=== PATIENT | female | born 1995 | race Caucasian/White ===

== ENCOUNTER → 2021-11-14 14:47 | Outpatient (BNVA) | payer OTHER, SELFPAY | PROVIDERS: Visit Provider Nurse Practitioner Family | DX: Z20.822 Contact with and (suspected) exposure to COVID-19 (principal) | CPT/HCPCS: 87635 ==

== ENCOUNTER → 2023-01-22 09:44 | Outpatient (BNVA) | payer OTHER, SELFPAY | PROVIDERS: Visit Provider Nurse Practitioner Women's Health | DX: N92.6 Irregular menstruation, unspecified (principal) | CPT/HCPCS: 85025 ==

== ENCOUNTER → 2023-01-24 10:00 | Outpatient (BNVA) | payer OTHER, SELFPAY | PROVIDERS: Visit Provider Nurse Practitioner Women's Health | DX: E61.1 Iron deficiency (principal) | CPT/HCPCS: 82728; 83550 ==

== ENCOUNTER → 2023-01-30 13:24 | Outpatient (BNVA) | payer OTHER, SELFPAY | PROVIDERS: Visit Provider Nurse Practitioner Women's Health | DX: N92.6 Irregular menstruation, unspecified (principal) | CPT/HCPCS: 76830 ==

== ENCOUNTER 2023-02-04 13:03 | Emergency (ER) | payer OTHER, SELFPAY ==
[2023-02-04 13:05] VITALS: BP 122/81; PULSE 99; RESP 16; TEMP 36.7; O2SAT 100; BMI 23.0
--- NOTE | 2023-02-04 13:05 | XRR_ITS ---
PROCEDURE INFORMATION: Exam: XR Chest Exam date and time: 02/04/2023 1:32 PM Age: 27 years old Clinical indication: Shortness of breath; Additional info: SOB TECHNIQUE: Imaging protocol: Radiologic exam of the chest. Views: 1 view. COMPARISON: No relevant prior studies available. FINDINGS: Lungs: Unremarkable. No consolidation. Pleural spaces: Unremarkable. No pleural effusion. No pneumothorax. Heart/Mediastinum: Unremarkable. No cardiomegaly. Bones/joints: No acute findings. XR/XR chest 1V portable [id number] IMPRESSION: No acute cardiopulmonary abnormality.
--- NOTE | 2023-02-04 13:05 | ECG_ITS ---
[facility] Test Date: 2023-02-04 Pat Name: Latha Mccoy Department: Room: Gender: Female Packer Insulation: : 1995 Requested By: Vineet Whitehead Order Number: [id number] Hayden MD: Hitesh Frank Measurements Intervals [place] Rate: 88 P: 65 VT: 155 QRS: 59 QRSD: 90 T: 48 QT: 362 QTc: 439 Interpretive Statements SINUS RHYTHM LOW QRS VOLTAGE IN PRECORDIAL LEADS [QRS DEFLECTION < 1.0 mV IN CHEST LEADS] No previous ECG available for comparison Electronically Signed On 02-04-2023 18:57:46 CDT by Hitesh Frank [email or web address] [id number] f
--- NOTE | 2023-02-04 13:17 | W.ED.CHESTPA ---
HPI - Chest Pain General: Chief Complaint: Chest Pain Stated Complaint: sob/arms tingling/heart racing Time Seen by Provider: 02/04/23 13:16 History of Present Illness: Ms. Mccoy is a 27-year-old lady with recent diagnosis of iron deficiency anemia presented to the emergency department for palpitations and shortness of breath. She reports onset of symptoms few hours prior to arrival without known specific provoking event. She notes tingling in all extremities and intermittent changes in vision. Denies associated headaches. Intensity symptoms is moderate. Course has persisted. No other specific changes in health, exacerbating, or alleviating factors identified. Onset (ago): hour(s) Timing of current episode: constant Onset: during rest Quality: other Relieving factors: nothing Exacerbating factors: nothing Associated symptoms: Reports dyspnea, palpitations and other Review of Systems General: Reports: 10 or more systems reviewed and unremarkable except in HPI and below Card: Reports: palpitations Resp: Reports: dyspnea PFSH ED PFSH: Medical History Abnormal uterine bleeding Iron deficiency anemia Surgical History H/O gastric bypass Family History Family/Other Diabetes Paternal Aunt Family/Other Diabetes Paternal uncle Cervical cancer Aunt/ Paternal Sister Uterine cancer Family/Other Uterine cancer Paternal aunt Breast cancer Aunt/ Maternal Grandmother Breast cancer Paternal Ovarian cancer paternal Stroke paternal Denies family history of Colon cancer Hypertension Social History Smoking and tobacco status: never smoked Physical Exam Const: COMMON NORMALS: alert GENERAL APPEARANCE: cooperative and well developed HENMT: COMMON NORMALS: normocephalic and atraumatic HEAD & SCALP: normocephalic and atraumatic Eye: COMMON NORMALS: conjunctivae normal CONJUNCTIVA: Yes conjunctivae normal SCLERA: sclerae normal Neck/C-Spine: COMMON NORMALS: supple GENERAL: Yes trachea midline Resp: COMMON NORMALS: clear to auscultation bilaterally EFFORT & INSPECTION: Yes able to speak in complete sentences AUSCULTATION: clear to auscultation bilaterally Cardio: COMMON NORMALS: regular rate and regular rhythm RATE: regular rate RHYTHM: regular rhythm GI: COMMON NORMALS: Soft to palpation PALPATION: Yes Soft to palpation and No Tenderness to palpation present (GI) Extremity: GENERAL: Yes normal exam except as noted and No edema Neuro: COMMON NORMALS: moves all extremities SENSORIUM/ORIENTATION: Yes alert and No Orientation impaired Psych: COMMON NORMALS: mental status grossly normal and Normal thought process present THOUGHT PROCESS: Normal thought process present Course Vital Signs: Vital signs: Vital Signs Temperature 98.0 F 02/04/23 13:05 Pulse Rate 84 02/04/23 15:44 Respiratory Rate 14 02/04/23 14:17 Blood Pressure 113/75 02/04/23 15:44 Pulse Oximetry 100 02/04/23 14:17 Oxygen Delivery Me thod Room Air 02/04/23 14:17 MDM - Chest Pain Medical Decision Making 27-year-old female presenting with shortness of breath, tingling, palpitations. Exam as above. There are no focal neurologic deficits and patient is nontoxic in appearance. EKG demonstrates sinus rhythm with normal axis and intervals, no STEMI. Laboratory studies with no leukocytosis, microcytic anemia present, normal platelet count. Metabolic panel with no significant derangement. D-dimer is negative. hCG is negative and COVID is negative Chest x-ray with no lobar consolidation or pneumothorax. Patient mildly improved after IV fluids. Exact etiology of patient's symptoms is unclear though may be related to symptomatic anemia. Patient does not meet transfusion criteria and there is no evidence of active bleeding on exam. The results of ED evaluation were discussed with the patient including prescriptions and/or symptomatic cares (if applicable) including appropriate and responsible use, followup plan, and return precautions. The patient verbalized understanding and felt safe for discharge. Medical Records I reviewed the patient's medical records. Lab Data I reviewed the patient's lab results. 02/04/23 13:56 02/04/23 13:56 Radiology Impressions Chest X-Ray 02/04/23 13:05 IMPRESSION: No acute cardiopulmonary abnormality. Laboratory Results WBC 6.5 10^3/uL (4.0-10.0) 02/04/23 13:56 RBC 4.21 10^6/uL (4.1-5.3) 02/04/23 13:56 Hgb 9.9 g/dL (11.5-15.3) L 02/04/23 13:56 Hct 32.7 % (37.0-47.0) L 02/04/23 13:56 MCV 77.7 fl (81-99) L 02/04/23 13:56 MCH 23.5 pg (28.0-34.0) L 02/04/23 13:56 MCHC 30.3 g/dL (30.0-36.0) 02/04/23 13:56 RDW 15.7 % (12.1-15.1) H 02/04/23 13:56 Plt Count 284 10^3/cmm (130-400) 02/04/23 13:56 MPV 11.3 fL (7.4-10.4) H 02/04/23 13:56 Neut % (Auto) 54.0 % 02/04/23 13:56 Lymph % (Auto) 34.4 % 02/04/23 13:56 [place] % (Auto) 10.0 % 02/04/23 13:56 Eos % (Auto) 0.8 % 02/04/23 13:56 Baso % (Auto) 0.6 % 02/04/23 13:56 Neut # (Auto) 3.53 10^3/uL (1.8-7.7) 02/04/23 13:56 Lymph # (Auto) 2.2 10^3/uL (0.8-4.8) 02/04/23 13:56 [place] # (Auto) 0.7 10^3/uL (0.2-0.9) 02/04/23 13:56 Eos # (Auto) 0.1 10^3/uL (0.0-0.8) 02/04/23 13:56 Baso # (Auto) 0.0 10^3/uL (0.0-0.1) 02/04/23 13:56 Nucleated RBC % (auto) 0 % 02/04/23 13:56 Nucleated RBCs # 0.0 /100WBC 02/04/23 13:56 D-Dimer 0.40 ug/mIFEU (0-0.59) 02/04/23 13:56 Sodium 141 mmol/L (136-145) 02/04/23 13:56 Potassium 3.5 mmol/L (3.5-5.1) 02/04/23 13:56 Chloride 106 mmol/L (98-107) 02/04/23 13:56 Carbon Dioxide 24 mmol/L (22-29) 02/04/23 13:56 Anion Gap 14.5 (5-19) 02/04/23 13:56 BUN 9 mg/dL (6-20) 02/04/23 13:56 Creatinine 0.6 mg/dL (0.5-0.9) 02/04/23 13:56 GFR Calculation 121.8 mL/min (90-130) 02/04/23 13:56 Glucose 71 mg/dL (65-115) 02/04/23 13:56 Calculated Osmolality 289 mOsm/kg (285-295) 02/04/23 13:56 Calcium 8.8 mg/dL (8.5-10.5) 02/04/23 13:56 TSH 0.87 uIU/mL (0.27-4.20) 02/04/23 13:56 HCG, Qual Negative (Negative) 02/04/23 13:38 SARS-CoV-2 Ag (Rapid) negative (Negative) 02/04/23 13:43 Discharge Plan Discharge Patient Disposition: Home Clinical Impression: Chest pain, Anemia, Heart palpitations Condition: Stable Prescriptions: No Action fluoxetine 40 mg capsule 40 mg PO DAILY methylphenidate HCl [Ritalin] 10 mg tablet 10 mg PO BID norethindrone acetate 5 mg tablet See Rx Instructions .ROUTE .COMPLEX Qty: 90 0RF Dose Instruction: TAKE 1 TABLET BY MOUTH DAILY. START TAKING AFTER COMPLETION OF 10 DAY REGIMEN Rx Instructions: TAKE 1 TABLET BY MOUTH DAILY. START TAKING AFTER COMPLETION OF 10 DAY REGIMEN multivitamin Tablet 1 tab PO DAILY FeroSul 325 mg (65 mg iron) tablet 32 mg PO DAILY Discharge Orders: Discharge ED (Routine); Ordered 02/04/23 Ordered By: Kalpesh Olivares Referrals: Mike Graves MD [Primary Care Provider] - Discharge Diet: Usual diet Discharge Activity: Resume usual activity Patient Instructions: Chest Pain (ED), Heart Palpitations (ED), Anemia (ED) Activity Restrictions/Additional Instructions: Thank you for visiting the emergency department. You were seen and evaluated for palpitations, lightheadedness, shortness of breath. The exact cause your symptoms is unclear though does not appear to need hospitalization at this time. Please follow-up with your primary care provider. Return to the emergency department for anything that you are concerned about and feel needs emergency department evaluation. 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
[2023-02-04 13:46] LABS: HCG Qualitative Urine. Negative (Negative)
[2023-02-04 14:11] LABS: SARS Covid-2 Antigen negative (Negative)
[2023-02-04 14:11] LABS: Basophils % 0.6 %; Eosinophils # 0.1 10^3/uL (0.0-0.8); Eosinophils % 0.8 %; Hematocrit 32.7 % (37.0-47.0); Hemoglobin 9.9 g/dL (11.5-15.3); Lymphocytes # 2.2 10^3/uL (0.8-4.8); Lymphocytes % 34.4 %; Mean Corpuscular HGB Conc 30.3 g/dL (30.0-36.0); Mean Corpuscular Hemoglobin 23.5 pg (28.0-34.0); Mean Corpuscular Volume 77.7 fl (81-99); Mean Platelet Volume 11.3 fL (7.4-10.4); Monocytes # 0.7 10^3/uL (0.2-0.9); Neutrophils # 3.53 10^3/uL (1.8-7.7); Nucleated Red Blood Cells % 0 %; Platelet Count 284 10^3/cmm (130-400); Red Blood Count 4.21 10^6/uL (4.1-5.3); Red Cell Distribution Width 15.7 % (12.1-15.1); White Blood Count 6.5 10^3/uL (4.0-10.0)
[2023-02-04 14:17] VITALS: BP 107/73; PULSE 77; RESP 14; O2SAT 100
[2023-02-04] MEDS: sodium chloride 0.9% 1,000 ML 999 ML IV (14:18)
[2023-02-04 14:43] LABS: Anion Gap 14.5 (5-19); Blood Urea Nitrogen 9 mg/dL (6-20); Calcium 8.8 mg/dL (8.5-10.5); Carbon Dioxide 24 mmol/L (22-29); Chloride 106 mmol/L (98-107); Glomerular Filtration Rate 121.8 mL/min (90-130); Glucose 71 mg/dL (65-115); Osmolality Calculated 289 mOsm/kg (285-295); Potassium 3.5 mmol/L (3.5-5.1); Sodium 141 mmol/L (136-145); Thyroid Stimulating Hormone 0.87 uIU/mL (0.27-4.20)
[2023-02-04 15:44] VITALS: BP 101/71; BP 105/59; BP 113/75; PULSE 80; PULSE 84; PULSE 98
== END 2023-02-04 16:13 | disposition home or self-care (01) ==
PROVIDERS: Emergency Medicine; Emergency Provider Emergency Medicine; PCP Family Medicine
DX: R07.9 Chest pain, unspecified (principal); D64.9 Anemia, unspecified; R00.2 Palpitations; Z20.822 Contact with and (suspected) exposure to COVID-19
CPT/HCPCS: 71045; 80048; 81025; 84443; 85025; 85378; 87426; 93005; 96360; 96361; 99285; J7030

== ENCOUNTER 2023-02-15 10:35 | Day surgery (SDC) | payer OTHER, SELFPAY ==
[2023-02-14 12:56] VITALS: BMI 21.9
[2023-02-15] VITALS (9 sets, daily range): BP systolic 102–120; BP diastolic 53–76; PULSE 67–82; RESP 13–18; TEMP 36.4–36.7; O2SAT 93–100
--- NOTE | 2023-02-15 09:01 | P.HPUD_ITS ---
Surgery/Procedure H&P Update DATE OF PROCEDURE: February 15, 2023 DATE H&P PERFORMED: 02/15/23 CHANGES TO PREVIOUS DOCUMENTATION: none PRIMARY INDICATION FOR PROCEDURE: abnormal uterine bleeding PLANNED PROCEDURE: Operation Date: 02/15/23 12:00 Proposed Procedures p Hysteroscopy, endometrial sampling with Myosure 62557, possible endometrial polypectomy 93125, N93.9(Not Applicable) - Antione Rendon MD s possible endometrial polypectomy 98774(Not Applicable) - Antione Rendon MD
--- NOTE | 2023-02-15 09:01 | W.PM.OPSUD ---
Surgery/Procedure H&P Update DATE OF PROCEDURE: February 15, 2023 DATE H&P PERFORMED: 02/15/23 CHANGES TO PREVIOUS DOCUMENTATION: none PRIMARY INDICATION FOR PROCEDURE: abnormal uterine bleeding PLANNED PROCEDURE: Operation Date: 02/15/23 12:00 Proposed Procedures p Hysteroscopy, endometrial sampling with Myosure 88469, possible endometrial polypectomy 23628, N93.9(Not Applicable) - Antione Rendon MD s possible endometrial polypectomy 42777(Not Applicable) - Antione Rendon MD
[2023-02-15] MEDS: sodium chloride 0.9% 1,000 ML 30 ML IV (11:10)
[2023-02-15 11:19] LABS: OR HCG Qualitative Urine Negative (Negative)
--- NOTE | 2023-02-15 12:09 | ANES.PREANE2 ---
Pre-Anesthetic Assessment Height/Weight: Height 1.7 m Weight 63.503 kg Temp Pulse Resp BP Pulse Ox O2 Del Method 97.6 F 82 18 120/64 100 Room Air 02/15/23 10:56 02/15/23 10:56 02/15/23 10:56 02/15/23 10:56 02/15/23 10:56 02/15/23 11:03 Preop Diagnosis: abnormal uterine bleeding Operation Date: 02/15/23 12:00 Proposed Procedures p Hysteroscopy, endometrial sampling with Myosure 66539, possible endometrial polypectomy 32299, N93.9(Not Applicable) - Antione Rendon MD s possible endometrial polypectomy 44624(Not Applicable) - Antione Rendon MD Familial anesthetic complications: none Was Beta Jyoti taken within 24 hours: N/A Was Clonidine taken within 24 hours: N/A Last intake: Intake Last Liquid Date 02/14/23 Last Liquid Time 21:30 Last Solid Date 02/14/23 Last Solid Time 21:30 Social No alcohol and No tobacco Exam alert, oriented x 3, clear to auscultation bilaterally and regular rate & rhythm Airway Submandibular: within normal limits Cervical ROM: within normal limits Mallampati: Class II Dentition: full CV/HEM Anemia Neuropsych Anxiety and Depression Anesthetic Plan ASA status: 2 Anesthesia: General Medications/Allergies Home Medications Medication Instructions Recorded Confirmed Last Taken Type fluoxetine 40 mg capsule 40 mg PO DAILY 11/14/21 02/14/23 02/14/23 History methylphenidate HCl 10 mg tablet 10 mg PO BID 01/22/23 02/14/23 02/14/23 History (Ritalin) norethindrone acetate 5 mg tablet See Rx Instructions .Route 01/22/23 02/14/23 02/13/23 Rx .COMPLEX #90 tabs ferrous sulfate 325 mg (65 mg 32 mg PO DAILY 02/14/23 02/14/23 02/14/23 History iron) tablet (FeroSul) multivitamin 1 tab PO DAILY 02/14/23 02/14/23 02/14/23 History Allergies Allergy/AdvReac Type Severity Reaction Status Date / Time NSAIDS (Non-Steroidal Allergy Unknown Verified 02/15/23 10:48 Anti-Inflamma Current Medications Generic Name Dose Route Start Last Admin Trade Name Freq PRN Reason Stop Dose Admin Sodium Chloride 1,000 mls @ 30 mls/hr 02/15/23 10:45 02/15/23 11:10 Sodium Chloride 0.9% IV 02/16/23 10:44 30 mls/hr .Q24H SOM Administration PFSH Anesthesia Medical History Abnormal uterine bleeding Iron deficiency anemia Surgical History H/O gastric bypass Family History Family/Other Diabetes Paternal Aunt Family/Other Diabetes Paternal uncle Cervical cancer Aunt/ Paternal Sister Uterine cancer Family/Other Uterine cancer Paternal aunt Breast cancer Aunt/ Maternal Grandmother Breast cancer Paternal Ovarian cancer paternal Stroke paternal Denies family history of Colon cancer Hypertension Social History Smoking and tobacco status: never smoked Data Anesthesia Cardiac Studies: No Data to Display
--- NOTE | 2023-02-15 12:09 | W.PM.OPSFHP ---
Same Day Surgery H&P Indication for Procedure/HPI DATE OF PROCEDURE: February 15, 2023 CHIEF COMPLAINT/INDICATIONFOR SURGICAL PROCEDURE: abnormal uterine bleeding PREOP DIAGNOSIS: abnormal uterine bleeding PLANNED PROCEDURE: Operation Date: 02/15/23 12:00 Proposed Procedures p Hysteroscopy, endometrial sampling with Myosure 04559, possible endometrial polypectomy 52788, N93.9(Not Applicable) - Antione Rendon MD s possible endometrial polypectomy 73481(Not Applicable) - Antione Rendon MD Medications/Allergies* Home Medications Medication Instructions Recorded Confirmed Type fluoxetine 40 mg capsule 40 mg PO DAILY 11/14/21 02/14/23 History methylphenidate HCl 10 mg tablet 10 mg PO BID 01/22/23 02/14/23 History (Ritalin) ferrous sulfate 325 mg (65 mg 32 mg PO DAILY 02/14/23 02/14/23 History iron) tablet (FeroSul) multivitamin 1 tab PO DAILY 02/14/23 02/14/23 History Allergies/Adverse Reactions Allergy/AdvReac Type Severity Reaction Status Date / Time NSAIDS (Non-Steroidal Allergy Unknown Verified 02/15/23 10:48 Anti-Inflamma Current Medications: Generic Name Dose Route Start Last Admin Trade Name Freq PRN Reason Stop Dose Admin Sodium Chloride 1,000 mls @ 30 mls/hr 02/15/23 10:45 02/15/23 11:10 Sodium Chloride 0.9% IV 02/16/23 10:44 30 mls/hr .Q24H SOM Administration Pertinent History/Comorbid Conditions* Medical History (Updated 02/12/23 @ 08:38 by Antione Rendon MD) Abnormal uterine bleeding Iron deficiency anemia Surgical History (Updated 02/04/23 @ 13:31 by Kalpesh Olivares MD) H/O gastric bypass Family History (Updated 02/01/23 @ 08:23 by Sina Ann) Cervical cancer Family/Other Aunt/ Paternal Ovarian cancer Grandmother paternal Diabetes Family/Other Paternal Aunt Family/Other Paternal uncle Breast cancer Family/Other Aunt/ Maternal Grandmother Paternal Uterine cancer Sister Family/Other Paternal aunt Stroke Grandmother paternal Denies family history of Colon cancer Hypertension Social History Smoking and tobacco status: never smoked Pertinent Exam Findings alert, oriented x 3, clear to auscultation bilaterally, regular rate & rhythm and procedure specific exam findings Lungs: clear Cor: RRR no m Abd: soft, nontender Recommendations Surgery/Procedure today Coding Level of Care Code Acute Code for Chg Fwd Diagnoses Time Spent (min) 15
[2023-02-15] MEDS: acetaminophen 325 mg Tablet 650 MG PO (14:48)
--- NOTE | 2023-02-15 15:28 | ANE.PACU2 ---
Inpatient post-anesthesia follow up: Airway intact: Yes Vital signs: Temperature 98.0 F Pulse Rate 67 Respiratory Rate 18 Blood Pressure 112/53 Pulse Oximetry 99 Oxygen Delivery Me thod Room Air Oxygen Flow Rate 6 Fraction of Inspir ed Oxygen Hydration adequate: Yes Nausea and vomiting: No Pain level: 3 Mental status: Baseline
--- NOTE | 2023-02-16 23:48 | PM.OP ---
Operative Report Date of procedure: February 15, 2023 Pre-op diagnosis: Preop Diagnosis abnormal uterine bleeding Post-op diagnosis: abnormal uterine bleeding endometrial polyp Post-op findings: 2 cm pedunculated endometrial polyp Procedure done: hysteroscopy endometrial sampling endometrial polypectomy with Myosure device Specimens removed/disposition: endometrial tissue Surgeon: Antione Rendon M.D. Estimated blood loss (mL): 5 Estimated blood loss: 5 cc Complications: none Findings: 2 cm pedunculated endometrial polyp no other abnormalities small amount of endometrial tissue Brief History: 27 y.o. with abnormal uterine bleeding Procedure: Informed consent for hysteroscopy, endometrial sampling, and possible endometrial polypectomy was signed. The patient was taken to the OR and placed supine on the table. Mask anesthesia was given. The patient was placed in dorsolithotomy position, prepped and draped for procedure. A Warren speculum was placed in the vagina. The anterior lip of the cervix was grasped with a sharp-toothed tenaculum. The uterus was sounded to 9 cm. The cervix was serially dilated with Hegar dilators. A hysteroscope was then placed into the endometrial cavity. A 2 cm smooth rounded endometrial polyp can be seen. A small amount of endometrial tissue was seen. No other abnormalities was visualized. A Myosure device was inserted and was used to remove the endometrial polyp. Additional endometrial sampling was obtained from all quadrants of the cavity. Endometrial tissue was sent to pathology. All instruments were then removed from the endometrial cavity, cervix, and vagina. No bleeding was seen. The patient was then placed supine and awakened. Postoperative condition: good EBL: 5 cc complications: none sponge and instruments counts were correct x two
== END 2023-02-15 14:45 | disposition home or self-care (01) ==
PROVIDERS: PCP Family Medicine; Visit Provider Obstetrics & Gynecology
PROC: 0UDB8ZZ Extraction of Endometrium, Via Natural or Artificial Opening Endoscopic (ICD-10-PCS; CPT 58558; principal; 2023-02-15 12:00)
PROC: (CPT 58558; 2023-02-15 12:00)
DX: N93.9 Abnormal uterine and vaginal bleeding, unspecified (principal); N84.0 Polyp of corpus uteri; D50.9 Iron deficiency anemia, unspecified; F41.9 Anxiety disorder, unspecified; F32.A Depression, unspecified; Z98.84 Bariatric surgery status
CPT/HCPCS: 58558; 81025; 84703; 88305; J2250; J2704; J3010; J7030

== ENCOUNTER 2023-10-30 08:09 | Outpatient (CLI) | payer OTHER, SELFPAY ==
[2023-10-30 08:09] VITALS: BMI 25.9
[2023-10-30 08:23] VITALS: BP 117/68; PULSE 67
[2023-10-30 08:38] VITALS: BP 119/73; PULSE 74
[2023-10-30 09:28] LABS: Actim Prom Negative
[2023-10-30 09:40] VITALS: BP 104/59; PULSE 63; RESP 16
--- NOTE | 2023-10-30 09:44 | P.TNLD_ITS ---
OB L&D Triage Visit Information: Date of evaluation: 10/30/23 Comments/Additional reason(s) for visit: The patient presented with possible rupture membranes. She had an episode of a wet puddle in her bed with no clear etiology. She has not had leaking since that time. Also of note, she currently has a fetus that is known to have anomalies. It has hydrops. Has a Segura syndrome. She was checked with a sterile spec. Vaginal vault was dry even with a cough. Actin PROM was negative. Nitrazine was negative. Ferning was negative. Evaluation: Laboratory results: Laboratory Tests 10/30/23 09:00 Insulin-like GF I Negative Vital signs: Vital Signs - 24 hr 10/30/23 08:23 10/30/23 08:38 Pulse Rate 67 74 Blood Pressure 117/68 119/73 Final Diagnosis Final Diagnosis (1) 20 weeks gestation of : Status: Acute Code(s): Z3A.20 - 20 weeks gestation of (2) Vaginal discharge during in second trimester: Plan: No sign of ruptured membranes. We discussed how she should manage future con siderations. She understands that if she is in doubt she is to come to the hospital. Her baby has known to have anomalies. Status: Acute Code(s): O26.892 - Other specified related conditions, second trimester; N89.8 - Other specified noninflammatory disorders of vagina Coding Level of Care Code Acute Code for Chg Fwd Diagnoses 20 weeks gestation of Z3A.20 Vaginal discharge during in second trimester O26.892; N89.8
[2023-10-30 09:45] VITALS: BP 104/59; PULSE 63; RESP 16
== END 2023-10-30 09:45 | disposition home or self-care (01) ==
LOC: OPOB 08:16 → OBGYN 08:17
PROVIDERS: PCP Family Medicine; Visit Provider Family Medicine
DX: O26.892 Other specified pregnancy related conditions, second trimester (principal); Z3A.20 20 weeks gestation of pregnancy; N89.8 Other specified noninflammatory disorders of vagina
CPT/HCPCS: 59025; 83986; 84112; 99211

== ENCOUNTER 2023-11-08 13:44 | Inpatient (IN) | payer OTHER, SELFPAY ==
[2023-11-08] VITALS (18 sets, daily range): BP systolic 108–138; BP diastolic 52–71; PULSE 75–101; RESP 16–18; TEMP 36.6–36.7; BMI 28.3
[2023-11-08] MEDS: LORazepam 0.5 mg Tablet PO ×2 (14:18→19:09)
[2023-11-08] MEDS: miSOPROStol 200 mcg Tablet 600 MCG VAGINAL ×2 (14:19→19:57)
[2023-11-08 14:50] LABS: Basophils % 0.3 %; Eosinophils % 0.5 %; Hematocrit 35.5 % (36-47); Lymphocytes # 1.7 10^3/uL (0.8-4.8); Lymphocytes % 22.8 %; Mean Corpuscular HGB Conc 35.2 g/dL (30-55); Mean Corpuscular Hemoglobin 31.7 pg (27-33); Mean Corpuscular Volume 90.1 fl (85-98); Mean Platelet Volume 11.2 fL (7.4-10.4); Monocytes # 0.5 10^3/uL (0.2-0.9); Monocytes % 6.6 %; Neutrophils # 5.13 10^3/uL (1.8-7.7); Neutrophils % 69.4 %; Nucleated Red Blood Cells % 0 %; Platelet Count 223 10^3/cmm (157-399); Red Blood Count 3.94 10^6/uL (3.85-5.65); Red Cell Distribution Width 12.1 % (12.1-15.1)
[2023-11-08] MEDS: fentaNYL 50 mcg/mL INJ 2mL IVP ×5 (19:05→23:45)
[2023-11-08] MEDS: miSOPROStol 200 mcg Tablet VAGINAL (23:20)
[2023-11-09] VITALS (18 sets, daily range): BP systolic 88–109; BP diastolic 50–66; PULSE 67–86; RESP 17
[2023-11-09] MEDS: fentaNYL 50 mcg/mL INJ 2mL IVP ×2 (01:02→03:15)
[2023-11-09] MEDS: morphine 4 mg/mL SDV 1 mL 10 MG IM (01:15)
[2023-11-09] MEDS: promethazine 25 mg/mL SDV 1 mL IM (01:15)
--- NOTE | 2023-11-09 03:45 | PM.OBGYHP ---
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 We anticipate that she would have demise at some point. At that time Dr. Mcconnell, her perinatologist, contacted me, and may be aware of her demise and her desire to deliver here in [place]. I spoke with her on the phone, and we set up an admission and induction for her. See faxed labs for details. Present Details : 1 Para: 0 Review of Systems General: Reports: 10 or more systems reviewed and unremarkable except in HPI and below Const: Reports: fatigue; Denies: fever(s) Eyes: Denies: change in vision Card: Denies: chest pain Musc: Reports: back pain Juliano/Lymph: Denies: easy bruising Medications/Allergies Home Medications Medication Instructions Recorded Confirmed Last Taken Type No Known Home Medications 11/08/23 11/08/23 Unknown History Allergies Allergy/AdvReac Type Severity Reaction Status Date / Time NSAIDS (Non-Steroidal Allergy Unknown Verified 04/25/23 08:03 Anti-Inflamma oxycodone Allergy ADR-Halluci Verified 11/08/23 15:31 nating PFS 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 PFSH: Medical History Abnormal uterine bleeding Iron deficiency anemia Surgical History H/O gastric bypass Family History Family/Other Diabetes Paternal Aunt Family/Other Diabetes Paternal uncle Cervical cancer Aunt/ Paternal Sister Uterine cancer Family/Other Uterine cancer Paternal aunt Breast cancer Aunt/ Maternal Grandmother Breast cancer Paternal Ovarian cancer paternal Stroke paternal Denies family history of Colon cancer Hypertension Social History Smoking and tobacco/nicotine status: never used tobacco/nicotine History History History 0 Term Miscarriages/Ectopic Living Children Vitals/I&O/Wt Last Vital Signs Temp 98.1 F 11/08/23 20:46 Pulse 72 11/09/23 01:42 Resp 17 11/09/23 01:15 BP 105/66 11/09/23 01:42 O2 Del Method Room Air 11/08/23 15:16 Weight last 48 hrs Weight 160 lb Physical Exam Const: COMMON NORMALS: patient oriented x3 and alert HENMT: COMMON NORMALS: moist oral mucous membranes HEAD & SCALP: normal to inspection Chest: COMMONS NORMALS: normal inspection of the chest Resp: COMMON NORMALS: clear to auscultation bilaterally AUSCULTATION: clear to auscultation bilaterally Cardio: COMMON NORMALS: regular rate and regular rhythm RATE: regular rate RHYTHM: regular rhythm GI: INSPECTION: Yes normal to inspection and Yes other (Gravid) Extremity: COMMON NORMALS: normal to inspection GENERAL: Yes edema (Trace) Neuro: COMMON NORMALS: patient oriented x3, moves all extremities and no sensory deficits noted SENSORIUM/ORIENTATION: Yes alert Psych: COMMON NORMALS: mental status grossly normal Skin: COMMON NORMALS: no rashes or lesions noted GENERAL SKIN EXAM: no rashes or lesions noted Data 11/08/23 14:05 Results Labs OB ([facility] Blood Type O Positive 11/08/23 Antibody Screen Negative 11/08/23 Hct 35.5 % (36-47) L 11/08/23 Hgb 12.50 g/dL (11.27-16.99) 11/08/23 Rho(D) Type Rh positive 11/08/23 Plt Count 223 10^3/cmm (157-399) 11/08/23 TSH 0.87 uIU/mL (0.27-4.20) 02/04/23 HCG, Qual Negative (Negative) 02/04/23 A&P Assessment and plan (1) 23 weeks gestation of : (2) demise > 22 weeks, delivered, current hospitalization: Patient will be placed on 600 mcg of Cytotec per vagina every 6 hours until delivery. Attestations Medical Necessity Statement*: I anticipate the patient will be delivering per vaginal delivery the fetus and have a short-term care Coding Level of Care Code Acute Code for Chg Fwd Diagnoses 23 weeks gestation of Z3A.23 demise > 22 weeks, delivered, current hospitalization O36.4XX0
--- NOTE | 2023-11-09 04:03 | P.PCNOB_ITS ---
Delivery Note: Date of delivery: November 09, 2023 Pre-delivery diagnoses: 27-year-old 1 at 23 weeks estima joan gestational age with a demise Post-delivery diagnoses: Status post spontaneous vaginal delivery of demise at 23 weeks Procedure: Spontaneous vaginal delivery of demise at 23 weeks Delivering Physician: Mike Graves Estimated blood loss (mL): 50 Pre-Delivery Course: The patient presented to the hospital where she was placed on Cytotec 600 mcg every 6 hours. She received 2 doses. Delivery: DELIVERY: The patient progressed to about 3 cm. She delivered a female fetus with a weight of 3.8 ounces the baby was delivered from the footling breech position. The cord was then clamped and cut. The placenta delivered without difficulty a few minutes later. The perineum and vaginal vault were carefully examined. No lacerations were noted. Both the mother and the baby were in stable condition. Post-Delivery Status: Good History History History 0 Term Miscarriages/Ectopic Living Children A&P Assessment and plan (1) demise > 22 weeks, delivered, current hospitalization: I anticipate routine care. She will likely will be discharged home as soon as she is comfortable being discharged. Her bleeding has been minimal, and her placenta was easily delivered. (2) 23 weeks gestation of : Coding Level of Care Code Acute Code for Chg Fwd Diagnoses demise > 22 weeks, delivered, current hospitalization O36.4XX0 23 weeks gestation of Z3A.23
--- NOTE | 2023-11-09 04:18 | P.DS_ITS ---
Discharge Providers FOLDER AND NOTCHER Date of Admission: 11/08/23 18:39 Date of Discharge: 11/09/23 Attending Provider at Admission: Mike Graves MD Attending Provider at Discharge: Mike Graves MD Primary Care Provider: Mike Graves MD Diagnoses at Discharge Discharge Diagnosis (1) demise > 22 weeks, delivered, current hospitalization: Status: Acute (2) 23 weeks gestation of : Status: Acute Reason for Visit Reason for Visit: induction of labor, demise Hospital Course Hospital Course The patient presented to the hospital with a known demise at 23 weeks. She was placed on Cytotec 600 mcg every 6 hours until delivery of the infant. Her induction was unremarkable. The vaginal delivery of the fetus was unremarkable. The placenta was delivered without difficulty. Her course was also unremarkable. Her bleeding was minimal. Her pain was well- controlled. Physical Exam Narrative: The patient is alert. She appears comfortable. Her heart has a regular rate and rhythm with no murmurs appreciated. Lungs are clear to auscultation bilaterally. Her fundus is firm and below the umbilicus. History History History 0 Term Miscarriages/Ectopic Living Children Discharge Data Studies Completed and Pending Pending at discharge Category Date Time Status Hemagram Timed Lab 11/09/23 16:10 Uncollected Laboratory Results WBC 7.40 10^3/uL (3.29-11.43) 11/08/23 14:05 RBC 3.94 10^6/uL (3.85-5.65) 11/08/23 14:05 Hgb 12.50 g/dL (11.27-16.99) 11/08/23 14:05 Hct 35.5 % (36-47) L 11/08/23 14:05 MCV 90.1 fl (85-98) 11/08/23 14:05 MCH 31.7 pg (27-33) 11/08/23 14:05 MCHC 35.2 g/dL (30-55) 11/08/23 14:05 RDW 12.1 % (12.1-15.1) 11/08/23 14:05 Plt Count 223 10^3/cmm (157-399) 11/08/23 14:05 MPV 11.2 fL (7.4-10.4) H 11/08/23 14:05 Neut % (Auto) 69.4 % 11/08/23 14:05 Lymph % (Auto) 22.8 % 11/08/23 14:05 [place] % (Auto) 6.6 % 11/08/23 14:05 Eos % (Auto) 0.5 % 11/08/23 14:05 Baso % (Auto) 0.3 % 11/08/23 14:05 Neut # (Auto) 5.13 10^3/uL (1.8-7.7) 11/08/23 14:05 Lymph # (Auto) 1.7 10^3/uL (0.8-4.8) 11/08/23 14:05 [place] # (Auto) 0.5 10^3/uL (0.2-0.9) 11/08/23 14:05 Eos # (Auto) 0.0 10^3/uL (0.0-0.8) 11/08/23 14:05 Baso # (Auto) 0.0 10^3/uL (0.0-0.1) 11/08/23 14:05 Nucleated RBC % (auto) 0 % 11/08/23 14:05 Nucleated RBCs # 0.0 /100WBC 11/08/23 14:05 Blood Type O Positive 11/08/23 14:05 Rho(D) Type Rh positive 11/08/23 14:05 Antibody Screen Negative 11/08/23 14:05 Vitals Last Vital Signs Temp 98.1 F 11/08/23 20:46 Pulse 79 11/09/23 04:12 Resp 17 11/09/23 01:15 BP 103/58 11/09/23 04:12 O2 Del Method Room Air 11/08/23 15:16 Results Labs OB ([facility]): Blood Type O Positive 11/08/23 Antibody Screen Negative 11/08/23 Hct 35.5 % (36-47) L 11/08/23 Hgb 12.50 g/dL (11.27-16.99) 11/08/23 Rho(D) Type Rh positive 11/08/23 Plt Count 223 10^3/cmm (157-399) 11/08/23 TSH 0.87 uIU/mL (0.27-4.20) 04/02/23 HCG, Qual Negative (Negative) 02/04/23 Discharge Plan Discharge Patient Disposition: Home Condition: Stable Prescriptions: New hydrocodone-acetaminophen 5-325 mg Tablet 1 tab PO Q6H PRN (Reason: Moderate To Severe Pain) Qty: 10 0RF No Action No Known Home Medications Discharge Orders: Discharge Order (Routine); Ordered 11/09/23 Ordered By: Mike Graves Referrals: Mike Graves MD [Primary Care Provider] - 4-7 days Discharge Diet: Usual diet Discharge Activity: Limit activity as instructed Patient Instructions: Opioid Safety Discharge Attestations FOLDER AND NOTCHER Time Spent in Discharge Care*: greater than 30 min Coding Level of Care Code Acute Code for Chg Fwd Diagnoses demise > 22 weeks, delivered, current hospitalization O36.4XX0 23 weeks gestation of Z3A.23
== END 2023-11-09 11:30 | disposition home or self-care (01) | DRG 807 ==
LOC: OPOB 11-09 05:49 → OBGYN 11-09 05:49
PROVIDERS: Admitting Provider Family Medicine; PCP Family Medicine; Visit Provider Family Medicine
DX: O36.4XX0 Maternal care for intrauterine death, not applicable or unspecified (principal); Z37.1 Single stillbirth; Z3A.23 23 weeks gestation of pregnancy
CPT/HCPCS: 36415; 59409; 85025; 86850; 86900; 96372; 96374; 96376; J2270; J2550; J3010

== ENCOUNTER 2024-10-09 16:48 | Inpatient (IN) | payer BC, SELFPAY ==
[2024-10-09] VITALS (28 sets, daily range): BP systolic 91–124; BP diastolic 50–72; PULSE 71–99; RESP 17; O2SAT 98–99; BMI 73.5
[2024-10-09 17:45] LABS: Basophils % 0.2 %; Eosinophils # 0.1 10^3/uL (0.0-0.8); Eosinophils % 0.5 %; Hematocrit 30.4 % (36-47); Lymphocytes % 22.1 %; Mean Corpuscular HGB Conc 31.9 g/dL (30-55); Mean Corpuscular Hemoglobin 26.9 pg (27-33); Mean Corpuscular Volume 84.2 fl (85-98); Mean Platelet Volume 11.5 fL (7.4-10.4); Monocytes # 0.5 10^3/uL (0.2-0.9); Monocytes % 5.4 %; Neutrophils # 6.52 10^3/uL (1.8-7.7); Neutrophils % 70.9 %; Nucleated Red Blood Cells % 0 %; Platelet Count 215 10^3/cmm (157-399); Red Blood Count 3.61 10^6/uL (3.85-5.65); Red Cell Distribution Width 14.6 % (12.1-15.1)
--- NOTE | 2024-10-09 17:47 | PM.OPHPUD ---
Labor & Delivery H&P Update Date of Procedure: October 09, 2024 Date H&P Performed: 10/09/24 Changes to previous documentation: No changes. Admission Diagnosis: 28-year-old 2 para 0-0-1-0 at 38 weeks and 5 days presenting for induction due to to an asymmetric IUGR infant Primary indication for procedure: Asymmetric IUGR Other information: The patient is a otherwise healthy female who with an unremarkable . At her recent visit her fundal height was noted to be measuring 4 cm small for her gestational age. An ultrasound was ordered and found that the baby had asymmetric growth restriction. While her head was a little more than 2 weeks behind, her abdomen was 4 weeks behind. As result she was admitted to the hospital for induction. The has otherwise been unremarkable. There were no concerns. 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 Her blood type is O+. Her antibody screen was negative. Her infectious disease profile is within normal limits. Her drug screen was negative. She passed her glucose screen. Her GBS status is negative. Related Problem List Diagnoses (1) 38 weeks gestation of : I anticipate routine labor. We will induce her starting with Cytotec. I discussed possible complications of an IUGR and the parents are aware of the potential the baby having some difficulties. Having said that, I am hopeful that the baby will do well. (2) Asymmetric IUGR affecting , antepartum: A&P Assessment and plan (1) 38 weeks gestation of : Status: Acute (2) Asymmetric IUGR affecting , antepartum: Status: Acute
[2024-10-09] MEDS: miSOPROStol 100 mcg tablet 25 MCG VAGINAL (17:55)
[2024-10-09] MEDS: fentaNYL 50 mcg/mL INJ 2mL IVP ×2 (21:31→22:42)
[2024-10-09] MEDS: lactated ringers 1,000 ML 999 ML IV (22:30)
[2024-10-09] MEDS: dextrose 5%-lactated ringers 1,000 ML 125 ML IV (23:31)
--- NOTE | 2024-10-09 23:52 | P.ANESASSM_ITS ---
Pre-Anesthetic Assessment Height/Weight: Height 1.6 m Weight 79.832 kg Pulse Resp BP Pulse Ox O2 Del Method 96 17 114/56 98 Room Air 10/09/24 23:48 10/09/24 22:42 10/09/24 23:48 10/09/24 23:45 10/09/24 16:56 Preop Diagnosis: Labor pain BRISEIDA Was Beta Jyoti taken within 24 hours: N/A Was Clonidine taken within 24 hours: N/A Social No alcohol and No tobacco Exam alert, oriented x 3, clear to auscultation bilaterally and regular rate & rhythm Airway Submandibular: within normal limits Cervical ROM: within normal limits Mallampati: Class II Dentition: full History/ROS No significant history except as noted and No significant complaints CV/HEM None reported None reported Hepatic None reported GI None reported Metabolic None reported Musc/skel None reported Neuropsych None reported Anesthetic Plan ASA status: 2 Anesthesia: Regional (specify below) Other: BRISEIDA Risk of > 500 ml blood loss (7ml/kg in children): No Medications/Allergies Home Medications Medication Instructions Recorded Confirmed Last Taken Type No Known Home Medications 11/08/23 11/08/23 Unknown History hydrocodone 5 mg-acetaminophen 325 1 tab PO Q6H PRN Moderate To 11/09/23 Unknown Rx mg tablet Severe Pain #10 tabs Allergies Allergy/AdvReac Type Severity Reaction Status Date / Time morphine Allergy ADR-Insomni Verified 10/09/24 18:55 a NSAIDS (Non-Steroidal Allergy Unknown Verified 04/25/23 08:03 Anti-Inflamma oxycodone Allergy ADR-Halluci Verified 11/08/23 15:31 nating promethazine [From Phenergan] Allergy ADR-Insomni Verified 10/09/24 18:55 a Current Medications Generic Name Dose Route Start Last Admin Trade Name Freq PRN Reason Stop Dose Admin Fentanyl 25 - 100 mcg 10/09/24 16:56 10/09/24 22:42 Fentanyl 50 Mcg/Ml Inj 2ml IVP 50 mcg Q1H PRN Administration SEVERE PAIN PFSH Anesthesia Medical History Abnormal uterine bleeding Iron deficiency anemia Surgical History H/O gastric bypass Family History Family/Other Diabetes Paternal Aunt Family/Other Diabetes Paternal uncle Cervical cancer Aunt/ Paternal Sister Uterine cancer Family/Other Uterine cancer Paternal aunt Breast cancer Aunt/ Maternal Grandmother Breast cancer Paternal Ovarian cancer paternal Stroke paternal Denies family history of Colon cancer Hypertension Social History Smoking and tobacco/nicotine status: never used tobacco/nicotine Female Reproductive History : 2 Data Anesthesia 10/09/24 17:30 Short CBC 10/09/24 Range/Units 17:30 WBC 9.20 (3.29-11.43) 10^3/uL Hgb 9.70 L (11.27-16.99) g/dL Hct 30.4 L (36-47) % MCV 84.2 L (85-98) fl Plt Count 215 (157-399) 10^3/cmm Neut % (Auto) 70.9 % Neut # (Auto) 6.52 (1.8-7.7) 10^3/uL Blood Bank 10/09/24 17:30 Blood Type O Positive Rho(D) Type Rh positive Antibody Screen Negative Cardiac Studies: 2 No Data to Display
--- NOTE | 2024-10-09 23:55 | ANES.PROC ---
Anesthesia Procedures Procedure/Date: 10/09/24 Epidural: Time Out Performed: Yes Consents Signed: Procedure Consent Consent: requested by attending/covering physician, from patient, risks and benefits reviewed and patient agrees to proceed Lumbar Level: L3-L4 Epidural position: sitting Epidural procedure: sterile prep of area, 1% lidocaine to numb the area, neg for paresthesia, test dose given, 1.5% xylocaine 1:200k epi (5cc), 0.2% Ropivacaine bolus ml (4cc and Fentanyl 100 mcg), placed PCEA, no systemic response, sterile dressing applied and 0.2% Ropiavacaine @ mls/hr (13cc/hour) Additional Comments: Pt tolerated well
[2024-10-09] MEDS: ROPivacaine syringe 100 MG/50 ML SYRINGE 13 MG EPIDURAL (23:59)
[2024-10-10] VITALS (56 sets, daily range): BP systolic 89–121; BP diastolic 51–74; PULSE 65–100; RESP 17; TEMP 36.8–37.4; O2SAT 94–97
[2024-10-10] MEDS: ROPivacaine syringe 100 MG/50 ML SYRINGE 13 MG EPIDURAL (03:35)
[2024-10-10] MEDS: dextrose 5%-lactated ringers 1,000 ML 125 ML IV (05:36)
[2024-10-10] MEDS: ondansetron 2 mg/ML SDV 2 mL 4 MG IVP (05:36)
[2024-10-10] MEDS: acetaminophen 325 mg Tablet 650 MG PO (05:37)
--- NOTE | 2024-10-10 06:58 | P.PCNOB_ITS ---
Delivery Note: Date of delivery: October 10, 2024 Pre-delivery diagnoses: 28-year-old 2 para 0-1-0-0 at 38 weeks estimated gestational age induced due to IUGR Post-delivery diagnoses: Status post spontaneous vaginal delivery Procedure: Spontaneous vaginal delivery Delivering Physician: Mike Graves Estimated blood loss (mL): 100 Pre-Delivery Course: The patient presented to the hospital the night prior to delivery for induction due to IUGR at 38 weeks. She was placed on Cytotec 25 mcg x 1. She progressed to complete without difficulty. An amniotomy was performed. Delivery: DELIVERY: The patient progressed to complete without difficulty. She delivered a female with a weight of 5 pounds 8 ounces with Apgars of []. The baby was del ivered from the [] position. The baby's mouth and nose were suctioned at the site of the perineum. The baby was then completely delivered and placed on the mother's abdomen. The cord was then clamped and cut. There was no nuchal cord. There was no meconium. The placenta and 3 vessel cord were delivered intact shortly thereafter. The perineum and vaginal vault were carefully examined. No lacerations were noted. Both the mother and the baby were in stable condition. History History History 2 Term 0 1 Miscarriages/Ectopic 0 Living Children 1 A&P Assessment and plan (1) 38 weeks gestation of : I anticipate routine care (2) Spontaneous vaginal delivery: Coding Level of Care Code Acute Code for Chg Fwd Diagnoses 38 weeks gestation of Z3A.38 Spontaneous vaginal delivery O80
--- NOTE | 2024-10-10 08:53 | ANE.PACU2 ---
Inpatient post-anesthesia follow up: Airway intact: Yes Vital signs: Temperature 97.8 F Pulse Rate 67 Respiratory Rate 16 Blood Pressure 106/66 Pulse Oximetry 97 Oxygen Delivery Me thod Room Air Oxygen Flow Rate Fraction of Inspir ed Oxygen Hydration adequate: Yes Nausea and vomiting: No Pain level: 1 Mental status: Baseline Epidural Start/End: Epidural Start Date: 10/09/24 Epidural Start Time: 23:30 Epidural End Date: 10/10/24 Epidural End Time: 18:03
[2024-10-10] MEDS: docusate sodium 100 mg Capsule PO ×2 (12:35→18:29)
[2024-10-10] MEDS: PRENATAL VIT NO.130/IRON/FOLIC 1 EACH TABLET PO (12:35)
[2024-10-10] MEDS: HYDROcodone-acetaminophen 5-325 mg Tablet PO ×3 (12:35→23:21)
[2024-10-10] MEDS: lanolin oint 7 gm 1 APPLIC TOPICAL (18:29)
[2024-10-10] MEDS: benzocaine-menthol 78 gm Canister 1 SPRAY TOPICAL (18:29)
[2024-10-10 19:50] LABS: Mean Corpuscular HGB Conc 31.7 g/dL (30-55); Mean Corpuscular Hemoglobin 26.8 pg (27-33); Mean Corpuscular Volume 84.5 fl (85-98); Mean Platelet Volume 11.5 fL (7.4-10.4); Platelet Count 213 10^3/cmm (157-399); Red Blood Count 3.43 10^6/uL (3.85-5.65); Red Cell Distribution Width 14.9 % (12.1-15.1); White Blood Count 15.87 10^3/uL (3.29-11.43)
[2024-10-11] MEDS: HYDROcodone-acetaminophen 5-325 mg Tablet PO (04:29)
[2024-10-11 04:30] VITALS: BP 106/66; PULSE 67; RESP 16; TEMP 36.6; O2SAT 97
[2024-10-11 07:32] VITALS: RESP 16
[2024-10-11] MEDS: oxyCODONE-APAP 5-325 mg Tablet PO (07:32)
[2024-10-11] MEDS: docusate sodium 100 mg Capsule PO (08:49)
[2024-10-11] MEDS: PRENATAL VIT NO.130/IRON/FOLIC 1 EACH TABLET PO (08:49)
--- NOTE | 2024-10-11 09:37 | PM.OBGYDC ---
Discharge Providers TUNNEL INSPECTOR Date of Admission: 10/09/24 16:48 Date of Discharge: 10/11/24 Attending Provider at Admission: Mike Graves MD Attending Provider at Discharge: Mike Graves MD Primary Care Provider: Mike Graves MD Diagnoses at Discharge Discharge Diagnosis (1) 38 weeks gestation of : Status: Acute (2) Spontaneous vaginal delivery: Status: Acute Reason for Visit Reason for Visit: iol Hospital Course Hospital Course The patient is a 28-year-old female 38 weeks estimated gestational age presented to the hospital for induction due to asymmetric IUGR based on ultrasound performed on the day of admission. She was placed on Cytotec 25 mcg x 1. She then received an epidural. She then had an amniotomy, and within half hour had an unremarkable vaginal delivery. She had a second-degree tear. Her recovery was pretty unremarkable. She did have some significant pain the night after delivery that improved with Percocet. She is breast-feeding well. Her bleeding has been within normal limits. Information Peripartum Data: Infant Delivery Method: Vaginal Physical Exam Narrative: The patient is alert. She appears comfortable. Her heart has a regular rate and rhythm with no murmurs appreciated. Lungs are clear to auscultation bilaterally. Her fundus is firm and below the umbilicus. Urinary Catheter Management: Castano Latex: Cath Placed During This Visit: yes, but has since been removed by the nurse Reason for Continuing Indwelling Catheter: Decision to DC Catheter Urinary Catheter Date of Insertion: 10/10/24 Urinary Catheter Time of Insertion: 01:05 Date Urinary Catheter Removed: 10/10/24 Time Urinary Catheter Discontinued: 06:33 History History History 2 Term 0 1 Miscarriages/Ectopic 0 Living Children 1 Discharge Data Studies Completed and Pending Laboratory Results WBC 15.87 10^3/uL (3.29-11.43) H 10/10/24 19:07 RBC 3.43 10^6/uL (3.85-5.65) L 10/10/24 19:07 Hgb 9.20 g/dL (11.27-16.99) L 10/10/24 19:07 Hct 29.0 % (36-47) L 10/10/24 19:07 MCV 84.5 fl (85-98) L 10/10/24 19:07 MCH 26.8 pg (27-33) L 10/10/24 19:07 MCHC 31.7 g/dL (30-55) 10/10/24 19:07 RDW 14.9 % (12.1-15.1) 10/10/24 19:07 Plt Count 213 10^3/cmm (157-399) 10/10/24 19:07 MPV 11.5 fL (7.4-10.4) H 10/10/24 19:07 Neut % (Auto) 70.9 % 10/09/24 17:30 Lymph % (Auto) 22.1 % 10/09/24 17:30 [place] % (Auto) 5.4 % 10/09/24 17:30 Eos % (Auto) 0.5 % 10/09/24 17:30 Baso % (Auto) 0.2 % 10/09/24 17:30 Neut # (Auto) 6.52 10^3/uL (1.8-7.7) 10/09/24 17:30 Lymph # (Auto) 2.0 10^3/uL (0.8-4.8) 10/09/24 17:30 [place] # (Auto) 0.5 10^3/uL (0.2-0.9) 10/09/24 17:30 Eos # (Auto) 0.1 10^3/uL (0.0-0.8) 10/09/24 17:30 Baso # (Auto) 0.0 10^3/uL (0.0-0.1) 10/09/24 17:30 Nucleated RBC % (auto) 0 % 10/09/24 17:30 Nucleated RBCs # 0.0 /100WBC 10/09/24 17:30 Blood Type O Positive 10/09/24 17:30 Rho(D) Type Rh positive 10/09/24 17:30 Antibody Screen Negative 10/09/24 17:30 Vitals Last Vital Signs Temp 97.8 F 10/11/24 04:30 Pulse 67 10/11/24 04:30 Resp 16 10/11/24 07:32 BP 106/66 10/11/24 04:30 Pulse Ox 97 10/11/24 04:30 O2 Del Method Room Air 10/11/24 04:30 Results Labs [facility] ([facility]): Blood Type O Positive 10/09/24 Antibody Screen Negative 10/09/24 Hct 29.0 % (36-47) L 10/10/24 Hgb 9.20 g/dL (11.27-16.99) L 10/10/24 Rho(D) Type Rh positive 10/09/24 Plt Count 213 10^3/cmm (157-399) 10/10/24 TSH 0.87 uIU/mL (0.27-4.20) 02/04/23 HCG, Qual Negative (Negative) 02/04/23 Discharge Plan Discharge Patient Disposition: Home Condition: Stable Prescriptions: New oxycodone-acetaminophen 5-325 mg Tablet 1 tab PO Q6H PRN (Reason: Moderate To Severe Pain) Qty: 28 0RF Vitamin 27 mg iron- 800 mcg Tablet 1 tab PO DAILY Qty: 90 0RF Discontinued hydrocodone-acetaminophen 5-325 mg Tablet 1 tab PO Q6H PRN (Reason: Moderate To Severe Pain) Qty: 10 0RF Discharge Orders: Discharge Order (Routine); Ordered 10/11/24 Ordered By: Mike Graves Referrals: Mike Graves MD [Primary Care Provider] - 11/20/24 11:00 am () Discharge Diet: Usual diet Discharge Activity: Limit activity as instructed Patient Instructions: Depression (DC), Opioid Safety (DC), Preeclampsia and Eclampsia After Delivery (GEN), Hemorrhage (DC), OB Discharge Report, OB Food/Drug Interaction Guide, OB Care at Home, Opioid Safety, OB Vaginal Deliveries, Abnormal Bleeding Discharge Attestations TUNNEL INSPECTOR Time Spent in Discharge Care*: less than 30 min Coding Level of Care Code Acute Code for Chg Fwd Diagnoses 38 weeks gestation of Z3A.38 Spontaneous vaginal delivery O80
[2024-10-11 10:55] VITALS: BP 96/52; PULSE 82; RESP 16; TEMP 36.6; O2SAT 97
== END 2024-10-11 11:15 | disposition home or self-care (01) | DRG 807 ==
LOC: OPOB 16:48 → OBGYN 16:48
PROVIDERS: Admitting Provider Family Medicine; PCP Family Medicine; Visit Provider Family Medicine
DX: O36.5930 Maternal care for other known or suspected poor fetal growth, third trimester, not applicable or unspecified (principal); Z37.0 Single live birth; Z3A.38 38 weeks gestation of pregnancy; O70.1 Second degree perineal laceration during delivery
CPT/HCPCS: 36415; 51702; 59025; 59409; 85025; 85027; 86850; 86900; 96374; 96376; 98960; J2405; J2795; J3010; J7120; J7121